=== PATIENT | female | born 1975 | race Hispanic/Latino ===

== ENCOUNTER 2025-02-10 01:36 | Inpatient (IN) | payer SELFPAY ==
[2025-02-09 20:57] VITALS: BP 141/86
[2025-02-09 21:19] LABS: Hematocrit 41.2 % (37.0-47.0); Hemoglobin 14.3 g/dL (12.0-16.0); Mean Corp Hgb Conc. 34.7 g/dL (33.0-37.0); Mean Corpuscular Volume 86.7 fL (81.0-99.0); Nucleated Red Blood Cells % 0 %; Platelet Count 365 10^3/uL (130-400); Red Cell Dist. Width 12.5 % (11.5-14.5)
[2025-02-09 21:29] LABS: HCG, Serum Qualitative Screen Negative
[2025-02-09 21:31] LABS: ALT (SGPT) 15 U/L (0-35); AST (SGOT) 16 U/L (14-36); Albumin 4.5 g/dl (3.5-5.0); Alkaline Phosphatase 95 U/L (38-126); Blood Urea Nitrogen 10 mg/dl (7-17); Calcium 9.7 mg/dl (8.4-10.2); Carbon Dioxide 24 mmol/L (22-30); Chloride 106 mmol/L (98-107); Glucose 117 mg/dl (70-99); Potassium 4.3 mmol/L (3.5-5.1); Sodium 138 mmol/L (135-145); Total Protein 7.9 g/dl (6.3-8.2); eGFR > 60.00
[2025-02-09 21:42] LABS: Troponin I < 0.012 ng/ml
--- NOTE | 2025-02-09 23:09 | ED.GENMED ---
History of Present Illness
General
Chief Complaint: Musculo-Skeletal Complaint
Source: patient and spouse
Time Seen by Provider: 02/09/25 22:44
History of Present Illness
History of Present Illness:
49-year-old female presents to the emergency room complaining of left shoulder pain. Pain began Saturday. She denies any trauma. She denies any increased activity such as lifting or painting etc. She does use a hand bike for some exercise but this
is not unusual. Patient denies any fever or chills. The pain in her left shoulder is severe. Minimal movement worsens the pain significantly. Patient is right-hand dominant.
Past History
Past History
ED Past Medical History: Other (Migraine); Negative Asthma, HTN, Hypercholesterolemia or NIDDM
ED Past Surgical History: Appendectomy and Gynecological (Tumor removed from Ovary)
Social History
Tobacco: Non-smoker
Alcohol: None
Personal:
Living: with family
Phy Exam
Physical Exam
Physical Exam:
General: Awake, Alert, Oriented X3. Patient appears somewhat comfortable at rest but has severe pain with minimal movement of the left shoulder and becomes tearful
Vitals: unremarkable
Head: Atraumatic
Eyes: Pupils equal, EOMI
Throat: Airway intact, no exudates
Neck: Trachea midline
Lungs: Clear and equal b/l
Heart: Regular rate, no murmurs
Neuro: Nonfocal
Skin: Warm, dry, no rash
Extremities: pulses equal b/l, no lower extremity edema left shoulder appears perhaps somewhat swollen, exquisitely tender to minimal palpation around the shoulder w/o single area of maximum tenderness, Range of motion in any direction worsens the
pain significantly.
Course
Orders/Labs/Results
Orders:
Orders
02/09/25 20:56
ECG [Electrocardiogram (*1)] Urgent
Reason for Study: Chest Pain
02/09/25 20:57
EKG- Treatment ONCE
02/09/25 20:59
Cardiac Monitoring- Treatment ONCE
IV Insert/Care/Rem.- Treatment PRN
Test Result ONCE
O2 Therapy [RESP] Urgent
Titrate/Wean O2 to maintain O2 sat greater than (%): 90
Special Instructions: Maintain sats >/=90%
Pulse Ox/spot Check [RESP] Urgent
Quantity: 1
Special Instructions: ON ROOM AIR
02/09/25 21:05
Shoulder, Left 2 View CR [CR Shoulder - Left Min 2 View*] Urgent
Comment:
Reason For Exam: pain
02/09/25 21:06
C-Reactive Protein Urgent
Comment: ADD ON
Complete Blood Count/With Diff Urgent
Comprehensive Metabolic Panel Urgent
Erythrocyte Sed Rate Urgent
Comment: ADD ON
HCG, Serum Qualitative Screen Urgent
Comment: Notify provider if positive test present
Lyme Progressive Urgent
Comment: ADD ON
Troponin I Urgent
Uric Acid Urgent
Comment: ADDED
02/09/25 23:02
Add On- LAB Urgent
Tests Added?: crp, sed rate, progressive lyme
HYDROmorphone [Dilaudid] 1 mg IV NOW STA
02/10/25 00:05
Ketorolac [Toradol] 15 mg IV NOW STA
02/10/25 00:19
Add On- LAB Urgent
Tests Added?: uric acid
Abnormal Lab Results
02/09/25
21:06
WBC 15.3 H 10^3/uL
(4.8-10.8)
Abs Immat Gran (auto) 0.1 H 10^3/uL
(0-0.05)
Absolute Neuts (auto) 10.9 H 10^3/uL
(1.4-6.5)
Absolute Monos (auto) 0.9 H 10^3/uL
(0.1-0.6)
ESR 26 H mm/hour
(0-20)
Glucose 117 H mg/dl
(70-99)
C-Reactive Protein 54.70 H mg/L
(0.0-10.00)
02/09/25 21:06
02/09/25 21:06
Vital Signs
Initial and Last Documented VS:
Initial Vital Signs
Temp Pulse Resp BP Pulse Ox
98.1 F 100 18 141/86 99
02/09/25 20:57 02/09/25 20:57 02/09/25 20:57 02/09/25 20:57 02/09/25 20:57
Last Documented Vital Signs
Temp Pulse Resp BP Pulse Ox
99.6 F 91 25 118/71 99
02/09/25 23:23 02/09/25 23:22 02/09/25 23:22 02/09/25 23:22 02/09/25 23:11
Procedures
Incision/Drainage/Joint Aspiration
Left Shoulder:
Anethesia: 1% Lidocaine
Preparation: cleaned with Betadine
Type of procedure: aspiration
How much fluid was obtained?: none
MDM/Problems Addressed
Differential Diagnosis Includes:
septic joint, gout/pseudogout, Lyme, tendonitis
MDM/Problems Addressed:
Patient presents with severe left shoulder pain. No apparent risk factors for septic joint. However she has significant tenderness with any manipulation of the shoulder. Pain at rest alleviated somewhat with IV Dilaudid but continued to have
severe pain with minimal movement. Labs show an elevated white count of 15.3. Sed rate minimally elevated, CRP markedly elevated at 54. X-rays are unremarkable. I attempted to aspirate the left shoulder but did not obtain any fluid. Case
discussed with Dr. Lee who is on-call for orthopedics. Given the severity of her pain recommend hospitalization, MRI and perhaps IR consult for another attempted aspiration.
*Radiology
Radiology exam reviewed: radiology read reviewed
*Pulse Oximetry
SaO2: 99
Oxygen Mode of Delivery: Room air
Patient hypoxic: no
*EKG
Interpreted by ED Provider?: Yes
Interpretation: abnormal
Heart Rate: 101
Rate: tachycardiac
Rhythm: sinus tachycardia
[place]: normal axis
Interval: normal interval
QRS Pattern: normal QRS
Ischemia: no ischemia
*Network Support Analyst Interpretation
Rate: tachycardiac
Interpretation: abnormal
Rhythm: sinus tachycardia
*Critical Care Note
Total Time (30-74mins, 75-104mins- exclusive of procedures): Not Applicable
ED Attending Note
-
Portions of this chart may have been created with voice recognition software.� Occasional wrong word or��sound alike� substitutions may have occurred due to the inherent limitations of voice recognition software.
Discharge Plan
Departure
Patient Disposition: Admit
Date of Disposition: 02/10/25
Time of Disposition: 00:34
Admit to: Med/Surg
Presentation/result/management discussed w/ accepting MD/DO: Hospitalist
Condition: Fair
Discharge Problem:
Severe pain of left shoulder
Prescriptions:
No Action
'Migraine Medication'
PRN PRN (Reason: migraine headaches)
Referrals:
UNKNOWN - PT DOES,NOT KNOW [Family Provider]
Interventions
Interventions:
*Risk Screen - Suicide Last Done: 02/09/25 20:57
*Neglect/Abuse Screening Last Done: 02/09/25 20:57
Discharge Date and Time
Print Language: ALBANIAN
[2025-02-09 23:22] VITALS: BP 118/71
[2025-02-09] MEDS: DILAUDID 1 MG IV (23:25)
[2025-02-10] VITALS (11 sets, daily range): BP systolic 97–118; BP diastolic 58–73; BMI 27.3
[2025-02-10 00:08] LABS: C-Reactive Protein 54.70 mg/L (0.0-10.00)
[2025-02-10] MEDS: TORADOL 15 MG IV (00:28)
[2025-02-10 01:08] LABS: Uric Acid 3.3 mg/dl (2.5-6.2)
[2025-02-10] MEDS: VALIUM INJECTION 2 MG IV (01:28)
--- NOTE | 2025-02-10 01:36 | HPS.HSE ---
Family Physician
-
Family Physician: NOT KNOW UNKNOWN - PT DOES
Chief Complaint
-
L Shoulder Pain
History of Present Illness
Patient is a 49y F with PMH significant for migraines who presents to ED complaining of severe L shoulder pain. History obtained from patient and her at the bedside. Patient was feeling very well until Saturday when she began to have pain
in the L shoulder with radiation into the LUE and the L neck. They were driving back from [place] when the pain occurred. Patient denies any fall, injury, trauma, recent exercise / strenuous activity, etc. The pain persisted and increased in severity
and extent since Saturday. She has been unable to sleep due to pain.
Yesterday she was capable of about 20 degrees of ABduction. Today any movement at all elicits severe pain.
She has had N/V and shaking chills - which she attributes to the severe pain.
No prior history of similar symptoms.
Only current medication is abortive migraine medicine that she takes PRN.
Medical History
Past Medical History
Past Medical History: Reports Other
Additional Past Medical History:
Migraines
Ovarian Lesion
Past Surgical History: Reports Other
Additional Past Surgical History:
Appendectomy
Oophorectomy
Social History
Tobacco: Non-smoker
Alcohol: None
Drug: None
Personal:
Living: With Family
Family History
Family History: Other (Gastric Cancer)
Allergies / Home Medications
Allergies reflects when Allergies were last updated in [employer].
Home Medications with original date entered in [employer]
Allergy/Medication List:
Allergies
Allergy/AdvReac Type Severity Reaction Status Date / Time
No Known Allergies Allergy Verified 02/09/25 20:57
Home Medications
'Migraine Medication' PRN PRN migraine headaches 02/09/25
Review of Systems
-
History Source: Patient and Family
A 12 point ROS was completed and negative except as noted: Yes
Constitutional: Reports Fatigue and Chills; Denies Fever
EENT: Denies Sore Throat
Respiratory: Denies Cough or Trouble Breathing
Cardiac: Reports Chest Pain (L chest); Denies Diaphoresis, Palpitations or Syncope
Abdomen/GI: Reports Nausea and Vomiting; Denies Abdominal Pain, Diarrhea, Bloody Stools or Black Stools
: Denies Dysuria or Frequency
Musculoskeletal: Reports Joint Pain, Joint Swelling and Muscle Pain; Denies Edema
Neurological: Reports Headache; Denies Dizzy
Psych: Denies Depression or Anxiety
Physical Exam
Vital Signs
Vital Signs
Temp Pulse Resp BP Pulse Ox
99.6 F 91 25 118/71 99
02/09/25 23:23 02/09/25 23:22 02/09/25 23:22 02/09/25 23:22 02/09/25 23:11
Physical Exam
General: Other (49y F in moderate distress due to pain.)
HEENT: Moist mucous membranes and PERRLA
Respiratory: Clear; No Wheezes, Rales or Rhonchi
Cardiac: S1/S2 and Regular Rhythm; No Murmur
GI: Soft, Non Tender, Non Distended and Normal Bowel Sounds
Musculoskeletal: No Clubbing, No Cyanosis and Other (Mild edema of the RUE about the shoulder and proximal / upper arm. No erythema / induration / fluctuance / wound / etc. Exquisite tenderness from L neck to L forearm. Exquisite pain with any
ROM.)
Neuro: AO x 3
Laboratory Results
-
02/09/25 21:06
02/09/25 21:06
Laboratory Results
Total Bilirubin 0.8 mg/dl (0.2-1.3) 02/09/25 21:06
AST 16 U/L (14-36) 02/09/25 21:06
ALT 15 U/L (0-35) 02/09/25 21:06
Alkaline Phosphatase 95 U/L (38-126) 02/09/25 21:06
Troponin I < 0.012 ng/ml 02/09/25 21:06
Impression/Plan
-
A/P: Patient is a 49y F with PMH significant for migraines who presents to ED complaining of severe L shoulder pain.
Severe Left Shoulder Pain
Concern for Septic Arthritis
- Admit for further evaluation and treatment.
- Patient presents with tachycardia, tachypnea, leukocytosis and L shoulder pain. Temp = 99.6.
- ESR mildly elevated, CRP elevated.
- X-ray imaging of the shoulder was unremarkable.
- Attempted tap in the ED yielded no fluid for analysis.
- Ortho consulted. Recommend MRI in AM and possible re-try tap in IR.
- Avoid abx overnight if possible pending tap / cultures.
- Supportive care / pain control / IVFs / etc.
- Follow fever curve and hemodynamic status.
DVT Prophylaxis: SCDs
Code Status: Full
[2025-02-10] MEDS: DILAUDID 0.5 MG IV (03:39)
[2025-02-10] MEDS: NSS 1000 IV ×4 (03:39→21:05)
[2025-02-10 03:50] LABS: Hematocrit 37.3 % (37.0-47.0); Hemoglobin 13.0 g/dL (12.0-16.0); Mean Corp Hgb Conc. 34.9 g/dL (33.0-37.0); Mean Corpuscular Volume 86.9 fL (81.0-99.0); Platelet Count 337 10^3/uL (130-400); Red Cell Dist. Width 12.5 % (11.5-14.5)
[2025-02-10 04:15] LABS: Blood Urea Nitrogen 11 mg/dl (7-17); Calcium 9.3 mg/dl (8.4-10.2); Carbon Dioxide 21 mmol/L (22-30); Chloride 107 mmol/L (98-107); Glucose 103 mg/dl (70-99); Potassium 4.1 mmol/L (3.5-5.1); Sodium 136 mmol/L (135-145); eGFR > 60.00
--- NOTE | 2025-02-10 04:54 | PTCARENOTE ---
received patient from ER, patient speaks only finnish, at bedside to translate admission information. patient having 8/10 pain upon arrival, prn dilaudid given with effective results. patients left arm in sling, fingers warm with good
pulses.
was with his 6 year old daughter, he took her home but states that they will be back in the morning, when i explained that the age for children in ICU is 14, the patients states 'well her 16th birthday will be tomorrow.'
admission completed, patient is NPO at this time for potential surgery to Left shoulder, IVF running, VSS, patient a febrile, labs drawn and sent on admission. no further needs, patient sleeping comfortably at this time.
[2025-02-10] MEDS: TORADOL 10 MG IV ×2 (07:33→18:27)
[2025-02-10] MEDS: TYLENOL 1000 MG PO ×3 (07:34→21:05)
[2025-02-10] MEDS: VALIUM 5 MG PO (07:47)
--- NOTE | 2025-02-10 07:55 | W.PN.UPDATE ---
Update Note
Progress Note Update
Patient seen and examined.
Agree with hospitalist H&P.
Appreciate orthopedic surgery input regarding severe onset of acute left shoulder pain without trauma.
Awaiting left shoulder MRI.
Consult IR for left arthrocentesis, send studies for culture and crystal analysis.
--- NOTE | 2025-02-10 08:54 | CON.ORTHO ---
Consultation
-
Date/Time Consultation Requested: 02/09/2025; time unknown
Date/Time Consultation Performed: 02/10/2025; 0730
Requesting Provider: unknown
Performing Provider: Hailey Roldan PA-C / Dr. Bang Lee
Reason for Consultation: Left shoulder pain
Consultation - Orthopedics
History
Ms. Snow is a 49 year old female with PMH of migraines seen today for her left shoulder. Her was on the phone and helped to translate for her. He reports that they drove their daughter back to college on Saturday, and Nidia developed severe
shoulder pain after the car ride home. They report they were not moving heavy furniture and the trip was otherwise uneventful. She endorses pain generally throughout the shoulder, and has almost no ROM due to pain. She denies any fever, but does
report she has been shaking due to the amount of pain she is in. She denies issues with her shoulder in the past.
Allergies / Home Medications
Allergy/AdvReac Type Severity Reaction Status Date / Time
No Known Allergies Allergy Verified 02/09/25 20:57
�Medication �Instructions �Recorded
'Migraine Medication' PRN PRN migraine headaches 02/09/25
Vital Signs / Lab Results
Temp Pulse Resp BP Pulse Ox
98.3 F 79 11 103/58 95
02/10/25 07:19 02/10/25 04:45 02/10/25 04:45 02/10/25 04:00 02/10/25 04:45
02/10/25 03:35
02/10/25 03:35
XR of the left shoulder reveals maintained joint spaces. There does appear to be an area of calcific tendinitis posterolateral to the greater tuberosity.
Directed exam of the left shoulder reveals mild edema about the shoulder. No significant erythema, ecchymosis or lesions. Scar from previous vaccination over lateral shoulder. Generalized tenderness to palpation about the shoulder, most notably over
the posterior shoulder. ROM significantly limited secondary to patient pain and guarding. Discomfort with elbow ROM. Full ROM of wrist and hand. Neurovascularly intact distally.
Assessment / Plan
Severe left shoulder pain
--Unfortunatley, Nidia has developed severe pain in her left shoulder after a car ride this past weekend. It would be very unusual to develop a septic shoulder without any preceding event or illness, but her CRP and ESR were elevated on admission,
and she has a white count. WBC and ESR are improved today (WBC 15.3-->13.5, ESR 103-->26), and patient is afebrile. Could also consider crystal arthropathy and frozen shoulder in the differential. I would agree with proceeding with an MRI to
evaluate soft tissues and determine if there is any fluid collection. If MRI shows collection, would recommend aspiration with IR. Ideally, it would be best to hold off on antibiotics until MRI and possible IR aspiration is performed. Continue
treatment per primary. Orthopedics will continue to follow along.
--- NOTE | 2025-02-10 10:08 | PTCARENOTE ---
Pt received from nightshift RN. She is complaining of severe pain in the L shoulder, medicated with toradol and Tylenol and pt is now resting comfortably. She is solomon islander speaking only. NSR on tele. + pulses, trace amount of swelling around that L
shoulder. 96% on RA. Breath sounds are clear. Walking to bathroom with one person assist. L shoulder currently in a sling, any movement causes severe pain, very tender to touch. R AC with NSS infusing. Pt awaiting MRI. Family updated.
--- NOTE | 2025-02-10 15:51 | CM ---
Patient Russian speaking only. Initial assessment completed with via phone. Patient lives with her and 2 children, 6 and 17 y/o, in a 1st floor apartment with no steps to enter. [employer] patient was independent in ADL's and ambulation,
was active. She does not drive. No DME or in-home services. No HC-POA. PCP is unknown. Does not remember name. Only sees PCP approx. once a year. Pharmacy is [facility] on [address] in [place]. Discharge POC: Anticipate home with no
needs.
Patient transferred to Room # 427-1.
[2025-02-11 03:00] VITALS: BP 101/69
[2025-02-11] MEDS: NSS 1000 IV (04:00)
[2025-02-11] MEDS: TORADOL 10 MG IV ×2 (04:01→11:05)
[2025-02-11 05:42] VITALS: BMI 24.8
[2025-02-11 06:24] LABS: Hematocrit 35.8 % (37.0-47.0); Hemoglobin 12.2 g/dL (12.0-16.0); Mean Corp Hgb Conc. 34.1 g/dL (33.0-37.0); Mean Corpuscular Volume 89.1 fL (81.0-99.0); Platelet Count 280 10^3/uL (130-400); Red Cell Dist. Width 12.5 % (11.5-14.5)
[2025-02-11 07:01] LABS: Uric Acid 3.1 mg/dl (2.5-6.2)
--- NOTE | 2025-02-11 07:09 | W.PN.UPDATE ---
Update Note
Progress Note Update
Nidia was resting comfortably in bed this morning. She reports her symptoms have improved slightly, though she continues with pain about the shoulder.
Directed exam of the left shoulder reveals mild edema about the shoulder. No significant erythema, ecchymosis or lesions. Scar from previous vaccination over lateral shoulder. Tenderness to palpation about the posterior shoulder, but this is
improved from yesterday. ROM is improved this morning. Able to range her passively to about 45 degrees of elevation, and 90 abduction. Discomfort with elbow ROM. Full ROM of wrist and hand. Neurovascularly intact distally.
Left shoulder pain
--Overall, Nidia's symptoms are significantly improved this morning on her current pain management regimen. Her MRI is pending. Orthopedics will [facility] back once MRI has been completed. Continue treatment per primary. Sling for comfort. May perform
ROM as tolerated.
[2025-02-11 07:25] VITALS: BP 113/69
[2025-02-11] MEDS: TYLENOL 1000 MG PO ×3 (08:08→21:52)
--- NOTE | 2025-02-11 09:04 | W.PN.HOSP.TC ---
Today's Communication/Plan
-
For left shoulder MRI today
Assessment / Plan
Assessment / Plan
49y F with PMH significant for migraines who presents to ED complaining of severe L shoulder pain.
Severe Left Shoulder Pain
Concern for Septic Arthritis
- Patient presents with tachycardia, tachypnea, leukocytosis and L shoulder pain. Temp = 99.6.
- ESR mildly elevated, CRP elevated. X-ray imaging of the shoulder was unremarkable.
- Attempted tap in the ED yielded no fluid for analysis.
- Appreciate orthopedic surgery input, recommend left shoulder MRI and aspiration by IR if there is an effusion
- Avoid abx pending tap / cultures.
- Supportive care / pain control / IVFs / etc.
- Leukocytosis resolved without antibiotics, no official fever documented
DVT Prophylaxis: SCDs
Code Status: Full
Updated on phone 02/11
Total time spent to see the patient on the floor, examine the patient, review data and lab results, discuss treatment plan with patient, nursing staff around 35 minutes.
Physical Exam
General: No acute distress
HEENT: Normocephalic, Atraumatic, EOMI, MMM
Respiratory: Clear to Auscultation bilaterally
Cardiac: Normal S1/S2, Regular Rate and Rhythm
GI: Soft, Nontender, Nondistended, Normal Bowel Sounds
Extremities: No Clubbing, Cyanosis, or Edema
Left shoulder in sling
Neuro: Nonfocal/Grossly Intact
Anticipated Discharge: 24 - 48 hours
Subjective/Interval History
-
Date of Service: February 11, 2025
Patient reports mild improvement in her left shoulder pain, 7 out of 10 in intensity. Denies constipation. No chest pain, no shortness of breath. Reports nausea due to the pain. No fever.
Objective Data
-
Labs:
Laboratory Results
02/11/25
06:10
WBC 9.7
Hgb 12.2
Hct 35.8 L
Plt Count 280
Vital Signs:
Vital Signs
Temp Pulse Resp BP Pulse Ox
98.0 F 82 14 113/69 95
02/11/25 07:25 02/11/25 07:25 02/11/25 07:25 02/11/25 07:25 02/11/25 07:25
[2025-02-11 11:28] VITALS: BP 110/72
[2025-02-11] MEDS: DILAUDID 0.5 MG IV (11:59)
[2025-02-11 12:46] LABS: Lyme Antibody Screen, EIA Negative (Negative)
[2025-02-11 15:44] VITALS: BP 114/71
[2025-02-11 20:11] VITALS: BP 105/74
[2025-02-11 23:45] VITALS: BP 118/66
[2025-02-12] MEDS: TORADOL 10 MG IV ×2 (00:43→12:16)
[2025-02-12 03:35] VITALS: BP 109/71
[2025-02-12 06:00] VITALS: BMI 24.4
--- NOTE | 2025-02-12 07:00 | W.PN.UPDATE ---
Update Note
Progress Note Update
[place] patient's on phone while seeing patient. They relay that she continues with 8 out of 10 pain. Pain is generally localized around the shoulder. Range of motion diminished. was told that MRI would be completed today. She has
been afebrile. Left shoulder mild warmth without erythema. No ecchymosis present. No palpable effusion noted. Generalized pain around the shoulder. Passive motion to 90 degrees, external rotation 50 degrees and internal rotation 30 degrees with
discomfort. Rotator cuff strength limited secondary to pain. Distal neurovascular was intact. Lab work pending this morning. Hopefully MRI today and if effusion noted consult IR for aspiration. Orthopedics will follow-up once MRI completed.
[2025-02-12 07:20] VITALS: BP 110/63
[2025-02-12 08:39] LABS: Hematocrit 38.0 % (37.0-47.0); Hemoglobin 13.0 g/dL (12.0-16.0); Mean Corp Hgb Conc. 34.2 g/dL (33.0-37.0); Mean Corpuscular Volume 86.8 fL (81.0-99.0); Platelet Count 328 10^3/uL (130-400); Red Cell Dist. Width 12.2 % (11.5-14.5)
[2025-02-12] MEDS: TYLENOL 1000 MG PO ×3 (09:05→20:45)
--- NOTE | 2025-02-12 09:30 | W.PN.HOSP.TC ---
Today's Communication/Plan
-
see bold
Assessment / Plan
Assessment / Plan
49y F with PMH significant for migraines who presents to ED complaining of severe L shoulder pain.
Severe Left Shoulder Pain
Concern for Septic Arthritis
- Patient presents with tachycardia, tachypnea, leukocytosis and L shoulder pain. Temp = 99.6.
- ESR mildly elevated, CRP elevated. X-ray imaging of the shoulder was unremarkable.
- Attempted tap in the ED yielded no fluid for analysis.
- Appreciate orthopedic surgery input, recommend left shoulder MRI and aspiration by IR if there is an effusion
- Left shoulder MRI negative for effusion
- Leukocytosis resolved without antibiotics, no official fever documented
- Continue pain control, may benefit from steroid injection in the left shoulder
DVT Prophylaxis: SCDs
Code Status: Full
Updated on phone 02/12
Total time spent to see the patient on the floor, examine the patient, review data and lab results, discuss treatment plan with patient, nursing staff around 37 minutes.
Physical Exam
General: No acute distress
HEENT: Normocephalic, Atraumatic, EOMI, MMM
Respiratory: Clear to Auscultation bilaterally
Cardiac: Normal S1/S2, Regular Rate and Rhythm
GI: Soft, Nontender, Nondistended, Normal Bowel Sounds
Extremities: No Clubbing, Cyanosis, or Edema
Left shoulder in sling
Neuro: Nonfocal/Grossly Intact
Anticipated Discharge: 24 - 48 hours
Subjective/Interval History
-
Date of Service: February 12, 2025
Patient continues to have left shoulder pain, 7 out of 10 in intensity. No chest pain, no shortness of breath. No fever, no vomiting.
Objective Data
-
Labs:
Laboratory Results
02/12/25
08:25
WBC 7.1
Hgb 13.0
Hct 38.0
Plt Count 328
Vital Signs:
Vital Signs
Temp Pulse Resp BP Pulse Ox
98.0 F 76 14 110/63 96
02/12/25 07:20 02/12/25 07:20 02/12/25 07:20 02/12/25 07:20 02/12/25 07:20
I&O
02/11/25 02/12/25 02/13/25
06:59 06:59 06:59
Intake Total 1300 / 1300
Balance 1300 / 1300
[2025-02-12 11:20] VITALS: BP 110/69
--- NOTE | 2025-02-12 11:26 | W.PN.UPDATE ---
Update Note
Progress Note Update
IR received a request for shoulder arthrocentesis. MRI reviewed today by myself and Dr. Akers. There is no joint effusion. No MRI evidence for osteomyelitis or septic arthritis. Agree with reading--calcific bursitis with a 1.3 cm focus of
presumed calcium hydroxyapatite deposition in the subacromial-subdeltoid bursa with surrounding bursal fluid and inflammation. Smaller adjacent suspected focus of rotator cuff calcific tendinosis at the insertion of the infraspinatus tendon. No
role for aspiration at this time.
--- NOTE | 2025-02-12 12:37 | PTCARENOTE ---
Assumed care of pt from previous nurse. Pt provided toradol for left shoulder discomfort, will assess for effectiveness. Pt call [facility] is within reach, pt rings danielle. Translation utilized as patient is barbadian speaking. will cont to monitor.
--- NOTE | 2025-02-12 14:33 | CM ---
Chart reviewed. Care ongoing
No CM needs at this time
Plan: Home, no needs
[2025-02-12 15:25] VITALS: BP 86/50
[2025-02-12 23:17] VITALS: BP 98/59
[2025-02-13 00:17] VITALS: BP 98/59
[2025-02-13 07:23] LABS: Hematocrit 38.3 % (37.0-47.0); Hemoglobin 13.2 g/dL (12.0-16.0); Mean Corp Hgb Conc. 34.5 g/dL (33.0-37.0); Mean Corpuscular Volume 87.8 fL (81.0-99.0); Platelet Count 362 10^3/uL (130-400); Red Cell Dist. Width 12.4 % (11.5-14.5)
[2025-02-13] MEDS: TYLENOL 1000 MG PO (07:49)
--- NOTE | 2025-02-13 08:39 | W.PN.HOSP.TC ---
Today's Communication/Plan
-
Discharge today
Assessment / Plan
Assessment / Plan
49y F with PMH significant for migraines who presents to ED complaining of severe L shoulder pain.
Severe Left Shoulder Pain
Calcific bursitis
Rotator cuff calcific tendinosis
- Patient presents with tachycardia, tachypnea, leukocytosis and L shoulder pain. Temp = 99.6.
- ESR mildly elevated, CRP elevated. X-ray imaging of the shoulder was unremarkable.
- Attempted tap in the ED yielded no fluid for analysis.
- Left shoulder MRI negative for effusion, does show calcific bursitis and rotator cuff calcific tendinosis
- Appreciate orthopedic surgery input, patient's pain is much improved status post cortisone shot
- Leukocytosis resolved without antibiotics, no official fever documented
- Medically stable for discharge on naproxen 500 mg twice a day as needed for pain
Chest pain
- Serial troponins are negative, EKG nonischemic
DVT Prophylaxis: SCDs
Code Status: Full
Updated on phone 02/13
Physical Exam
General: No acute distress
HEENT: Normocephalic, Atraumatic, EOMI, MMM
Respiratory: Clear to Auscultation bilaterally
Cardiac: Normal S1/S2, Regular Rate and Rhythm
GI: Soft, Nontender, Nondistended, Normal Bowel Sounds
Extremities: No Clubbing, Cyanosis, or Edema
Left shoulder in sling
Neuro: Nonfocal/Grossly Intact
Anticipated Discharge: Today
Subjective/Interval History
-
Date of Service: February 13, 2025
Patient reports improvement in her left shoulder pain, currently 3 out of 10 in intensity. This is after receiving her cortisone shot. She also reports chest pain. No shortness of breath. No fever, no vomiting.
Objective Data
-
Labs:
Laboratory Results
02/13/25
06:53
WBC 8.6
Hgb 13.2
Hct 38.3
Plt Count 362
Vital Signs:
Vital Signs
Temp Pulse Resp BP Pulse Ox
97.8 F 68 20 98/59 97
02/12/25 23:17 02/12/25 23:17 02/12/25 23:17 02/12/25 23:17 02/12/25 23:17
I&O
02/12/25 02/13/25 02/14/25
06:59 06:59 06:59
Intake Total 1300 / 1300 1959
Balance 1300 / 1300 1959
[2025-02-13 08:59] VITALS: BP 117/70
--- NOTE | 2025-02-13 09:39 | W.PN.UPDATE ---
Update Note
Progress Note Update
Nidia resting comfortably in bed guarding her left shoulder. Still experiencing pain with any motion of the left shoulder.
MRI of the left shoulder with 1.3 cm calcific density in infraspinatus tendon, c/w calcific tendintis. Surrounding inflammation of subacromial bursa also noted.
ROM shoulder with FE to 120 degrees passively, ER to 20 degrees with pain. Unable to assess rotator cuff strength. TTP over rotator cuff interval.
Spoke with patient's , [place], and had lengthy discussion in regards to MRI findings and treatment recommendations going forward. Due to her levels of pain, I recommend proceeding with a subacromial cortisone injection today. We discussed
the role of PT, however, they do not have active insurance at this time. Encouraged him to look on [employer] or [employer] for rotator cuff stretches and strengthening exercises once her pain decreases. Instructed him that it may take a week for the
injection to kick in, so NSAIDs or medrol dose phillip may be beneficial for pain control in the meantime. She will f/u in our outpatient office in 6-8 weeks for clinical re-evaluation. Due to the large nature of the calcification, we discussed the
potential for future arthroscopic debridement if less invasive treatment fails to alleviate her symptoms. No indication for surgery during this inpatient stay. Will sign off from orthopedic standpoint for now and follow up outpatient.
Procedure description: Under sterile technique, the subacromial space of the left shoulder was injected with 40 mg of Kenalog and 4 cc's of 1% lidocaine without epinephrine.
[2025-02-13] MEDS: LOW STRENGTH ASPIRIN 324 MG PO (10:53)
[2025-02-13 11:21] LABS: Troponin I < 0.012 ng/ml
[2025-02-13 13:49] LABS: Troponin I < 0.012 ng/ml
--- NOTE | 2025-02-13 13:54 | W.DCSUMMARY ---
Discharge Summary
Discharge Data
Date of Admission: 02/10/25
Date of Discharge: 02/13/25
-
Pending Results: No
Hospital Course
Discharge diagnosis:
Severe left shoulder pain
Left calcific bursitis
Left rotator cuff calcific tendinosis
Noncardiac chest pain
Consults: Orthopedic surgery
Left shoulder MRI:
Calcific bursitis with a 1.3 cm focus of presumed calcium hydroxyapatite deposition in the subacromial-subdeltoid bursa with surrounding bursal fluid and inflammation. Smaller adjacent suspected focus of rotator cuff calcific tendinosis at the
insertion of the infraspinatus tendon.
No MRI evidence for osteomyelitis or septic arthritis.
Hospital course:
49-year-old female with a past medical history of migraine headaches was admitted for severe left shoulder pain. She had a leukocytosis upon admission, as well as elevated inflammatory markers. She was seen in conjunction with orthopedic surgery
for concern of septic arthritis. Left shoulder MRI was negative for an effusion, does show left calcific bursitis and left rotator cuff calcific tendinosis. Patient's leukocytosis resolved without any antibiotics. She received a cortisone shot in
the left shoulder by orthopedic surgery. Her pain improved.
Patient also had substernal chest pain. Serial cardiac enzymes were negative, EKG was nonischemic.
Patient is medically stable for discharge. She is discharged on naproxen 500 mg twice a day. She needs to do rotator cuff exercises to improve the range of motion of her left shoulder. She also needs to follow-up with her primary care doctor in 1
week.
Disposition: Home self-care
Discharge planning: Required 41 minutes
Discharge Plan
-
Patient Disposition: Home (Routine Discharge)
Discharge Diagnosis/Procedures: Left shoulder pain, joint infection ruled out, noncardiac chest pain
Condition: Good
Diet: Regular
Activity: As tolerated
Driving Restrictions: As prior to admission
Referrals:
UNKNOWN - PT DOES,NOT KNOW [Family Provider]
Prescriptions:
New
naproxen 500 mg tablet
500 mg PO BID PRN (Reason: Pain) Qty: 60 0RF
Rx Instructions:
take with food
Continued
'Migraine Medication'
PRN PRN (Reason: migraine headaches)
Discharge Orders:
Discharge Patient (As Directed); Ordered 02/13/25
Ordered By: Cleve Licona
Discharge Date and Time
Discharge Date/Time: 02/13/25 14:47
Print Language: KAZAKH
--- NOTE | 2025-02-13 14:23 | CM ---
Discharge to home today no needs.
Plan; Home no needs.
[2025-02-13 14:27] VITALS: BP 120/78
== END 2025-02-13 14:47 | disposition home or self-care (01) | DRG 558 ==
LOC: 4 WEST ACU 01:36
PROVIDERS: Emergency Medicine; ADMITTING PHYSICIAN Hospitalist; ATTENDING PHYSICIAN Family Medicine; CONSULT PHYSICIAN Specialist; EMERGENCY PHYSICIAN Emergency Medicine
PROC: 0RJK3ZZ Inspection of Left Shoulder Joint, Percutaneous Approach (ICD-10-PCS; 2025-02-09)
DX: M75.32 Calcific tendinitis of left shoulder (principal); M75.52 Bursitis of left shoulder; D72.829 Elevated white blood cell count, unspecified; R07.2 Precordial pain; G43.909 Migraine, unspecified, not intractable, without status migrainosus; R79.82 Elevated C-reactive protein (CRP); Z80.0 Family history of malignant neoplasm of digestive organs
CPT/HCPCS: 10060; 73030; 73221; 80048; 80053; 84484; 84550; 84703; 85025; 85027; 85652; 86140; 86618; 87040; 93005; 94760; 96374; 96375; 99285